=== PATIENT | female | born 1985 | race Caucasian/White ===

== ENCOUNTER 2021-09-25 14:52 | Emergency (ER) | payer BC ==
[~2021-09-25] VITALS: Ht 170.2 cm; Wt 72.6 kg
--- NOTE | 2021-09-25 15:05 | NUR ---
PT IS IN ROOM #4B. DR GARCIAS EVALUATED THE PT.
[2021-09-25] MEDS ORDERED: IBUPROFEN 600 MG TABLET ONE (15:25)
[2021-09-25] MEDS ORDERED: IBUPROFEN 600 MG TABLET PO ONE (15:30)
[2021-09-25 15:35] VITALS: BP 112/80
--- NOTE | 2021-09-25 15:36 | NUR ---
Patient discharged to home in stable condition. Written and verbal after care instructions given. Patient verbalizes understanding of instructions. Stressed follow up or return to ER for worsening s/s.
== END 2021-09-25 15:36 | disposition home or self-care (01) ==
LOC: ER 14:54
DX: K11.5 Sialolithiasis (principal); Z85.819 Personal history of malignant neoplasm of unspecified site of lip, oral cavity, and pharynx
CPT/HCPCS: A4663